=== PATIENT | female | born 1950 | race Caucasian/White ===

== ENCOUNTER → 2018-03-14 | Outpatient (CLI) | payer MEDICARE, OTHER ==
[~2018-03-14] MED LIST: ALE70 PO; AMLO-111 PO; AMLO-113 PO; AMOX-559 PO; ASPI-1471 PO; ASPI-715 PO; CALC-547 PO; DONE10TA89 PO; FLU180SY11 IM; LEVO25TA61 PO; LOSA50TA80 PO; METO-235 PO; METO25TA23 PO; ROSU5TAB3 PO; VALS160T8 PEG; VALS160T8 PO; VALS320T12 PO; VALS320T5 PO; VARI50KI IM; VITA1CAP46 PO; ZOST19404 SQ
[2018-03-14 07:54] LABS: PLATELET COUNT, AUTOMATED 215 K/uL (150-450)
[2018-03-14 09:14] LABS: LDL CHOLESTEROL 56 mg/dl
== END ==
LOC: LAB 07:35
PROVIDERS: ATTEND Nurse Practitioner Family
DX: E03.9 Hypothyroidism, unspecified (principal); E78.5 Hyperlipidemia, unspecified; I10 Essential (primary) hypertension
CPT/HCPCS: 36415; 82040; 82247; 82310; 82374; 82435; 82465; 82565; 82947; 83718; 84075; 84132; 84155; 84295; 84443; 84450; 84460; 84478; 84520; 85025

== ENCOUNTER → 2018-03-28 | Outpatient (CLI) | payer MEDICARE, OTHER ==
--- NOTE | 2018-03-28 10:19 | RADIOLOGY IMAGING REPORT ---
FACILITY: [facility] - [place] PATIENT NAME: Minnie Cota : 1950 MR: [id number] V: [id number] EXAM DATE: ORDERING PHYSICIAN: PETE KEENAN TECHNOLOGIST: Location: [facility] - [place] Patient: Minnie Cota : 1950 Visit/Account:[id number] Date of Sevice: 03/28/2018 DEXA Scan Clinical history: Asymptomatic postmenopausal state. Comparison: DEXA scan from 02/10/2013. LUMBAR SPINE: The bone mineral density (BMD) measured from L1-L4 correlates with a Z-score of 1.4 and a T-score of -0.4 which is Normal as defined by the World Health Organization. The corresponding risk of fracture in the lumbar spine is Not increased compared with a young adult reference population. This value h as increased by 2.7 % since the prior study. More than 5% change is considered significant. HIP: Bone mineral density (BMD) measured in the LEFT total hip region correlates with a Z-score 0.7 and a T-score of -0.8 which is normal as defined by the World Health Organization. The corresponding risk of fracture in the hip is 1-2 t imes increased compared to a young adult reference population. This value has decrease by one % since the prior study. More than 5% change is considered significant. T score left femoral neck -1.6 Bone mineral density (BMD) measured in the Femoral Neck region measures 0.814 g/cm?. IMPRESSION: 1. Lumbar spine: Normal. There has been 2.7% increase in the bone mineral density since the previou s exam. 2. Left Total Hip: Normal. There has been 1% decrease in the bone mineral density since the previou s exam. 3. Femoral Neck: Bone Mineral Density is 0.814 g/cm? The next DEXA scan of this patient should include the following sites: L1-L4 and the left hip. FRAX? WHO Fracture Risk Assessment Tool link: <http://www.shef.ac.uk/FRAX/tool.jsp?locationValue=9> PLEASE NOTE: 1) The World Health Organization defines low BMD as follows: T-score Normal > -1 Osteopenia < -1 and > -2.5 Osteoporosis < -2.5 without fractures Established osteoporosis < -2.5 with fractures 2) In general, you may wish to consider: Diagnosis Treatment Follow-up DEXA Normal BMD Prevention 2-3 years Osteopenia Prevention/therapy 1-2 years Osteoporosis Therapy Yearly 3) Fracture risk estimated from the T-score is more accurate for vertebral fractures (often spontane ous) than for hip fractures. Report Dictated By: Graciela Morataya MD at 03/28/2018 10:13 AM Report E-Signed By: Graciela Morataya MD at 03/28/2018 10:15 AM WSN:[id number]
--- NOTE | 2018-03-28 15:44 | RADIOLOGY IMAGING REPORT ---
FACILITY: [facility] - [place], [place] PATIENT NAME: EKATERINA ACOSTA : [id number] MR: [id number] V: [id number] EXAM DATE: [id number] ORDERING PHYSICIAN: PETE KEENAN TECHNOLOGIST: Edith Uriostegui PROCEDURE:BILATERAL DIGITAL SCREENING MAMMOGRAM WITH CAD ASSISTED INTERPRETATION & 3D TOMOSYNTHESIS COMPARISON:Prior mammograms 03/04/14, 02/02/13, 01/24/12. INDICATIONS:screening FINDINGS: Fibroglandular densities are scattered throughout the breasts. The parenchymal pattern has remained stable allowing for difference in mammographic technique & patient positioning. DIAGNOSTIC CATEGORY 1--NEGATIVE. RECOMMENDATIONS: ROUTINE MAMMOGRAM AND CLINICAL EVALUATION. IMPRESSION: BIRADS 1: Negative. No significant abnormality is seen. Dictated by: Graciela Morataya M.D. on 03/28/2018 at 15:08 Transcribed by: MARY on 03/28/2018 at 15:14 Approved by: Graciela Morataya M.D. on 03/28/2018 at 15:43 [facility]
== END ==
LOC: MAMO 00:21
PROVIDERS: ATTEND Nurse Practitioner Family
DX: Z12.31 Encounter for screening mammogram for malignant neoplasm of breast (principal); Z78.0 Asymptomatic menopausal state
CPT/HCPCS: 77063; 77067; 77080